=== PATIENT | male | born 1960 | race Caucasian/White ===

== ENCOUNTER 2020-12-01 12:25 | Emergency (ER) | payer OTHER ==
[~2020-12-01] VITALS: Ht 170.2 cm; Wt 68.0 kg
== END 2020-12-01 14:04 | disposition home or self-care (01) ==
LOC: ER 13:23
DX: S00.93XA Contusion of unspecified part of head, initial encounter (principal); W01.0XXA Fall on same level from slipping, tripping and stumbling without subsequent striking against object, initial encounter; Y93.01 Activity, walking, marching and hiking; F10.10 Alcohol abuse, uncomplicated
CPT/HCPCS: 70450; 72125; 99283